=== PATIENT | male | born 1965 | race Caucasian/White ===

== ENCOUNTER 2021-03-29 16:55 | Emergency (ER) | payer OTHER ==
[~2021-03-29] VITALS: Ht 175.3 cm; Wt 74.8 kg
[2021-03-29 17:13] VITALS: BP_SYST 153
== END 2021-03-29 18:30 | disposition home or self-care (01) ==
LOC: SED 16:55
DX: H33.319 Horseshoe tear of retina without detachment, unspecified eye (principal); Z88.0 Allergy status to penicillin
CPT/HCPCS: 99281